=== PATIENT | female | born 1995 | race Caucasian/White ===

== ENCOUNTER 2024-01-19 22:08 | Emergency (ER) | payer OTHER ==
[2024-01-19 22:14] VITALS: BP 139/79; PULSE 79; RESP 18; TEMP 98.6; BMI 36.1
[2024-01-19 23:10] LABS: BASO % 0.4 % (0-2.0); EOS % 0.9 % (0-4.5); HEMATOCRIT 39.9 % (32.4-45.2); HEMOGLOBIN 13.3 GM/dL (10.7-15.3); LYMPH % 31.1 % (8-40); MCHC 33.4 g/dl (32.0-36.0); MEAN CELL VOLUME 83.9 fl (80-96); MEAN PLT VOLUME 9.6 fl (7.5-11.1); MONO % 6.6 % (3.8-10.2); PLATELET COUNT 182 10^3/uL (134-434); RBC 4.75 M/mm3 (3.60-5.2); RDW 12.9 % (11.6-15.6); WHITE BLOOD COUNT 7.1 K/mm3 (4.0-10.0)
[2024-01-19] MEDS: SODIUM CHLORIDE 0.9% 500 ML INFUS.BAG IV ONE (23:19)
[2024-01-19 23:29] LABS: POTASSIUM 3.8 mmol/L (3.5-5.1)
[2024-01-19 23:32] LABS: CALCIUM 9.3 mg/dL (8.5-10.1)
[2024-01-19 23:33] LABS: ALBUMIN 3.9 g/dl (3.4-5.0); BLOOD UREA NITROGEN 14.7 mg/dL (7-18)
[2024-01-19 23:36] LABS: CREATININE 0.6 mg/dL (0.55-1.3)
[2024-01-19 23:37] LABS: BILIRUBIN,TOTAL 0.4 mg/dL (0.2-1); TOT PROT 7.3 g/dl (6.4-8.2)
== END 2024-01-20 01:05 | disposition home or self-care (01) ==
LOC: JER 22:08
DX: R53.83 Other fatigue (principal)
CPT/HCPCS: 36415; 80053; 84703; 85025; 99283-25